=== PATIENT | male | born 1955 | race Two or more races ===

== ENCOUNTER 2017-07-31 18:03 | Inpatient (IN) | payer SELFPAY ==
[~2017-07-31] VITALS: Ht 182.9 cm; Wt 105.3 kg
[~2017-07-31 18:03] MED LIST: ASPI81CH43 PO; CHOL20007 PO; ESOM1CAP4 PO; HYDR12.527 PO; KRIL1CAP10 PO; ROSU1TAB6 PO; TICA90TA PO
[2017-07-31 19:43] LABS: Basophils # (auto) 0.1 uL; Basophils % (auto) 0.6 % (0.0-2.0); Eosinophils # (auto) 0.1 uL; Eosinophils % (auto) 1.1 % (0.0-7.0); Hemoglobin 10.3 g/dL (13.5-17.5); Lymphocytes # (auto) 1.1 uL; Lymphocytes % (auto) 10.8 % (10.0-50.0); Mean Corpuscular Hemoglobin 30.2 pg (28.0-32.0); Mean Corpuscular Hgb Conc. 33.2 g/dL (32.0-36.0); Mean Corpuscular Volume 91.1 fL (80.0-100.0); Mean Platelet Volume 11.1 fL (6.9-10.8); Monocytes # (auto) 0.8 uL; Monocytes % (auto) 7.7 % (0.0-12.0); Neutrophils % (auto) 79.8 % (37.0-80.0); Platelet Count (auto) 250 10^3/uL (140-450); White Blood Cell 10.1 10^3/uL (4.4-10.8)
[2017-07-31 19:54] LABS: Partial Thromboplastin Time 23.8 sec (22.64-33.71); Prothrombin Time 10.9 sec (9.37-12.3)
[2017-07-31 20:00] LABS: Temperature: 20.9 C (20.0-25.0)
[2017-07-31] MEDS ORDERED: FUROSEMIDE 20 MG/2 ML VIAL IV ONE ×2 (20:00→20:30)
[2017-07-31 20:04] LABS: Albumin 2.8 g/dL (3.4-5.0); Bilirubin, Total 0.3 mg/dL (0.2-1.0); Calcium 8.3 mg/dL (8.5-10.1); Magnesium 2.4 mg/dL (1.6-2.6); Total Protein 6.9 g/dL (6.4-8.2)
[2017-07-31 20:11] LABS: Potassium 5.9 mmol/L (3.5-5.1)
[2017-07-31] MEDS ORDERED: SODIUM POLYSTYRENE SULF 15GM/60ML SUSP PO ONE (20:30)
[2017-07-31] MEDS ORDERED: InsuLIN REG 1unit/0.01ml Soln (100units/ml) IV ONE (20:30)
[2017-07-31] MEDS ORDERED: IPRATROPIUM BROM 0.5 MG/2.5ML INH SOL NEB ONE (21:45)
[2017-07-31] MEDS ORDERED: ALBUTEROL SULF 2.5 MG/0.5ML(0.5%) NEB SOLN NEB ONE (21:45)
[2017-07-31] MEDS ORDERED: SODIUM BICARBONATE 8.4 % INJ 50ML VIAL IV ONE (21:45)
[2017-07-31] MEDS ORDERED: CALCIUM CHLOR(10%) 100MG/ML 10ML SYRINGE IV ONE ×2 (21:49→21:52)
[2017-07-31] MEDS ORDERED: CALCIUM CHL 100MG/ML 1,000 MG in D5W 5% 100 ML IV ONE (22:00)
[2017-07-31 22:04] LABS: Allen Test Yes; Base Excess -5.3 mmol/L (-2.0-2.0); Blood COHb 0.3 % (0.5-1.5); Blood MetHb 0.2 % (0.0-1.5); HCO3 19.1 mmol/L (22-26.0); MODE NASAL CANNULA; O2Hb 93.5 % (94.0-97.0); PCO2 33.1 mmHg (35.0-45.0); PCO2(T) 33.1 mmHg (35.0-45.0); PO2 81.1 mmHg (80.0-100.0); PO2(T) 81.1 mmHg (80.0-100.0); Sample Type Arterial; pH 7.378 (7.350-7.450)
[2017-07-31] MEDS ORDERED: NITROGLYCERIN 0.4 MG SL TAB SL PRN (23:00)
[2017-07-31] MEDS ORDERED: MORPHINE SULF INJ 2 MG/ML SYRINGE 1ML IV PRN (23:00)
[2017-07-31] MEDS ORDERED: ONDANSETRON HCL 4 MG/2 ML VIAL ONE (23:25)
[2017-07-31] MEDS ORDERED: ONDANSETRON HCL 4 MG/2 ML VIAL IV ONE (23:45)
[2017-08-01] VITALS (7 sets, daily range): BP systolic 123–189; BP diastolic 52–92
[2017-08-01] MEDS ORDERED: DEXTROSE (50%) 50ML SYRG IV PRN
[2017-08-01 03:31] LABS: Urine Bilirubin Negative (Negative); Urine Blood 1+ /uL (Negative); Urine Color Yellow (Yellow); Urine Glucose 3+ mg/dL (Normal); Urine Hyaline Cast MANY /lpf (0 - 2); Urine Ketone Negative (Negative); Urine Nitrite Negative (Negative); Urine RBC 2 /hpf (0 - 3); Urine Squamous Epithelial Cell FEW /hpf (<5); Urine Urobilinogen Normal (Negative)
[2017-08-01 04:41] LABS: Basophils # (auto) 0.1 uL; Basophils % (auto) 0.5 % (0.0-2.0); Eosinophils # (auto) 0.1 uL; Eosinophils % (auto) 0.5 % (0.0-7.0); Hematocrit 32.3 % (41.0-53.0); Hemoglobin 10.5 g/dL (13.5-17.5); Lymphocytes % (auto) 15.9 % (10.0-50.0); Mean Corpuscular Hemoglobin 29.6 pg (28.0-32.0); Mean Corpuscular Hgb Conc. 32.4 g/dL (32.0-36.0); Mean Corpuscular Volume 91.4 fL (80.0-100.0); Mean Platelet Volume 10.8 fL (6.9-10.8); Monocytes # (auto) 0.9 uL; Monocytes % (auto) 7.3 % (0.0-12.0); Neutrophils # (auto) 9.4 uL; Neutrophils % (auto) 75.8 % (37.0-80.0); Nucleated Red Blood Cells % 0.1 %; Platelet Count (auto) 282 10^3/uL (140-450); Red Cell Distribution Width 13.2 % (11.8-14.3); White Blood Cell 12.4 10^3/uL (4.4-10.8)
[2017-08-01 05:03] LABS: Albumin 3.1 g/dL (3.4-5.0); Calcium 9.3 mg/dL (8.5-10.1); Potassium 4.7 mmol/L (3.5-5.1)
[2017-08-01 05:06] LABS: BUN/Creatinine Ratio 12.9
[2017-08-01 05:08] LABS: Bilirubin, Total 0.4 mg/dL (0.2-1.0); Total Protein 7.3 g/dL (6.4-8.2)
[2017-08-01] MEDS: ACCU-CHEK COMFORT CURVE STRIP VI SCH ×4 (07:49→21:45)
[2017-08-01] MEDS: InsuLIN REG 1unit/0.01ml Soln (100units/ml) SC SCH ×4 (07:55→21:46)
[2017-08-01] MEDS ORDERED: FUROSEMIDE INJECTION 100 MG in D5W 5% 90 ML IV SCH (13:30)
[2017-08-01] MEDS: ASPirin 81 mg TAB PO SCH (14:12)
[2017-08-01] MEDS: FUROSEMIDE INJECTION 250 MG in D5W 5% 225 ML IV SCH (14:12)
[2017-08-01] MEDS: DOPamine 1600MCG/ML 250 ML IV SCH (14:18)
[2017-08-01] MEDS ORDERED: ONDANSETRON HCL 4 MG/2 ML VIAL IV PRN (14:45)
[2017-08-01] MEDS: hydrALAZINE HCL 20 MG/ML VL IV PRN (15:36)
[2017-08-01] MEDS ORDERED: hydrALAZINE HCL 20 MG/ML VL IV PRN (17:30)
[2017-08-01] MEDS ORDERED: METF-370 PO (18:26)
[2017-08-01] MEDS: ATORVASTATIN 20 MG TAB PO SCH (21:45)
[2017-08-01] MEDS ORDERED: ACETAMINOPHEN 500 MG TAB PO ONE (22:11)
[2017-08-01] MEDS ORDERED: ACETAMINOPHEN 500 MG TAB PO PRN (22:15)
[2017-08-02] VITALS: BP 118/43
[2017-08-02] MEDS: VANCOMYCIN 1GM/250ML D5W 250 ML IV SCH ×2 (03:00→15:00)
[2017-08-02] MEDS: DOPamine 1600MCG/ML 250 ML IV SCH (03:16)
[2017-08-02 04:00] VITALS: BP 137/68
[2017-08-02 05:08] LABS: Basophils # (auto) 0.1 uL; Basophils % (auto) 0.4 % (0.0-2.0); Eosinophils # (auto) 0 uL; Eosinophils % (auto) 0.3 % (0.0-7.0); Hemoglobin 10.3 g/dL (13.5-17.5); Lymphocytes # (auto) 1.3 uL; Lymphocytes % (auto) 9.4 % (10.0-50.0); Mean Corpuscular Hemoglobin 29.9 pg (28.0-32.0); Mean Corpuscular Hgb Conc. 33.4 g/dL (32.0-36.0); Mean Corpuscular Volume 89.8 fL (80.0-100.0); Mean Platelet Volume 10.9 fL (6.9-10.8); Monocytes # (auto) 1.5 uL; Monocytes % (auto) 10.8 % (0.0-12.0); Neutrophils % (auto) 79.1 % (37.0-80.0); Platelet Count (auto) 266 10^3/uL (140-450); Red Cell Distribution Width 13.1 % (11.8-14.3); White Blood Cell 13.9 10^3/uL (4.4-10.8)
[2017-08-02 05:22] LABS: INR 1.01 (0.9-1.15)
[2017-08-02] MEDS: ACCU-CHEK COMFORT CURVE STRIP VI SCH ×4 (06:45→22:05)
[2017-08-02] MEDS: InsuLIN REG 1unit/0.01ml Soln (100units/ml) SC SCH ×4 (06:45→22:05)
[2017-08-02 08:00] VITALS: BP 159/72
[2017-08-02 08:14] LABS: Albumin 2.9 g/dL (3.4-5.0); BUN/Creatinine Ratio 13.3; Bilirubin, Total 0.6 mg/dL (0.2-1.0); Calcium 8.8 mg/dL (8.5-10.1); Magnesium 2.5 mg/dL (1.6-2.6); Phosphorus 6.7 mg/dL (2.5-4.90); Potassium 4.1 mmol/L (3.5-5.1)
[2017-08-02 09:02] LABS: Hepatitis B Surface Antibody Negative
[2017-08-02] MEDS: ASPirin 81 mg TAB PO SCH (09:06)
[2017-08-02 11:57] VITALS: BP 154/76
[2017-08-02] MEDS ORDERED: LIDOCAINE 2%HCL (LOCAL ANESTH.) INJ 20ML MDV ONE (13:20)
[2017-08-02] MEDS ORDERED: VANCOMYCIN HCL 1000 MG VL ONE ×2 (13:28→15:59)
[2017-08-02] MEDS ORDERED: VANCOMYCIN 1GM/250ML D5W 250 ML IV ONE ×3 (13:28→17:30)
[2017-08-02] MEDS ORDERED: VANCOMYCIN HCL 1000 MG VL IR ONE (13:30)
[2017-08-02] MEDS ORDERED: FUROSEMIDE INJECTION 100 MG in D5W 5% 90 ML IV SCH (13:30)
[2017-08-02] MEDS: FUROSEMIDE INJECTION 250 MG in D5W 5% 225 ML IV SCH (14:00)
[2017-08-02] MEDS ORDERED: ceFAZolin 1GM/50ML D5W 50 ML IV ONE (15:24)
[2017-08-02] MEDS ORDERED: MIDAZOLAM HCL 1MG/1ML-2 ML VIAL ONE (15:38)
[2017-08-02] MEDS ORDERED: fentaNYL CITRATE 100 MCG/2 ML VL ONE (15:39)
[2017-08-02] MEDS ORDERED: GELATIN 1 SPONGE SIZE 100 TOP ONE (16:33)
[2017-08-02] MEDS ORDERED: HYDROcodone-ACET 5/325MG TAB PO PRN ×2 (17:00→17:15)
[2017-08-02] MEDS ORDERED: LORazepam 0.5 MG TAB PO PRN (17:00)
[2017-08-02] MEDS: hydrALAZINE HCL 20 MG/ML VL IV PRN (17:47)
[2017-08-02 19:55] VITALS: BP 160/82
[2017-08-02] MEDS: ATORVASTATIN 20 MG TAB PO SCH (22:05)
[2017-08-03 00:01] VITALS: BP 144/73
[2017-08-03 04:10] VITALS: BP 177/82
[2017-08-03] MEDS ORDERED: VANCOMYCIN PER PHARMACY 0 MG IV SCH (05:30)
[2017-08-03 05:33] LABS: Basophils # (auto) 0.1 uL; Basophils % (auto) 0.6 % (0.0-2.0); Eosinophils # (auto) 0.3 uL; Hematocrit 26.9 % (41.0-53.0); Hemoglobin 9.1 g/dL (13.5-17.5); Lymphocytes # (auto) 1.6 uL; Lymphocytes % (auto) 14.7 % (10.0-50.0); Mean Corpuscular Hemoglobin 30.4 pg (28.0-32.0); Mean Corpuscular Hgb Conc. 33.9 g/dL (32.0-36.0); Mean Corpuscular Volume 89.9 fL (80.0-100.0); Mean Platelet Volume 10.9 fL (6.9-10.8); Monocytes # (auto) 1.3 uL; Monocytes % (auto) 12.5 % (0.0-12.0); Neutrophils # (auto) 7.4 uL; Neutrophils % (auto) 69.2 % (37.0-80.0); Platelet Count (auto) 229 10^3/uL (140-450); Red Cell Distribution Width 12.7 % (11.8-14.3); White Blood Cell 10.7 10^3/uL (4.4-10.8)
[2017-08-03 05:45] LABS: Calcium 8.5 mg/dL (8.5-10.1); Potassium 3.7 mmol/L (3.5-5.1)
[2017-08-03 05:47] LABS: BUN/Creatinine Ratio 14.5
[2017-08-03] MEDS: InsuLIN REG 1unit/0.01ml Soln (100units/ml) SC SCH ×4 (06:42→22:45)
[2017-08-03] MEDS: ACCU-CHEK COMFORT CURVE STRIP VI SCH ×4 (06:48→22:00)
[2017-08-03 08:00] VITALS: BP 170/71
[2017-08-03] MEDS ORDERED: VANCOMYCIN 1GM/250ML D5W 250 ML IV ONE (10:00)
[2017-08-03] MEDS ORDERED: amLODIPine BESYLATE 5 MG TAB PO ONE (10:15)
[2017-08-03] MEDS ORDERED: CHOL1000T PO (10:22)
[2017-08-03] MEDS ORDERED: ASPI81CH43 PO (10:22)
[2017-08-03] MEDS ORDERED: ATOR20TA50 PO (10:22)
[2017-08-03] MEDS: CHOLECALCIFEROL (VITD3) 1,000 UNIT TAB PO SCH (10:25)
[2017-08-03] MEDS: ASPirin 81 mg TAB PO SCH (10:26)
[2017-08-03 12:00] VITALS: BP 170/72
[2017-08-03] MEDS: glipiZIDE 5 MG TAB PO SCH (12:00)
[2017-08-03] MEDS: hydrALAZINE HCL 20 MG/ML VL IV PRN (13:45)
[2017-08-03 16:00] VITALS: BP 126/76
[2017-08-03 20:21] VITALS: BP 141/65
[2017-08-03] MEDS: ATORVASTATIN 20 MG TAB PO SCH (22:44)
[2017-08-04] VITALS: BP 191/89
[2017-08-04] MEDS: hydrALAZINE HCL 20 MG/ML VL IV PRN ×3 (00:22→16:13)
[2017-08-04 03:54] VITALS: BP 186/86
[2017-08-04] MEDS ORDERED: cloNIDine HCL 0.1 MG TAB ONE (04:53)
[2017-08-04] MEDS ORDERED: cloNIDine HCL 0.1 MG TAB PO ONE (05:00)
[2017-08-04 05:35] LABS: BUN/Creatinine Ratio 16.9; Calcium 8.4 mg/dL (8.5-10.1); Potassium 3.5 mmol/L (3.5-5.1)
[2017-08-04] MEDS: ACCU-CHEK COMFORT CURVE STRIP VI SCH ×4 (06:57→22:28)
[2017-08-04] MEDS: InsuLIN REG 1unit/0.01ml Soln (100units/ml) SC SCH ×4 (06:58→22:27)
[2017-08-04] MEDS: ACETAMINOPHEN 325 MG TAB PO PRN (07:05)
[2017-08-04] MEDS: glipiZIDE 5 MG TAB PO SCH (07:10)
[2017-08-04 08:00] VITALS: BP 138/32
[2017-08-04] MEDS: ASPirin 81 mg TAB PO SCH (09:47)
[2017-08-04] MEDS: CHOLECALCIFEROL (VITD3) 1,000 UNIT TAB PO SCH (09:47)
[2017-08-04] MEDS ORDERED: amLODIPine BESYLATE 5 MG TAB PO SCH (10:00)
[2017-08-04] MEDS ORDERED: FUROSEMIDE 40 MG/4 ML VIAL IV ONE (10:45)
[2017-08-04 12:00] VITALS: BP 164/59
[2017-08-04 22:00] VITALS: BP 161/75
[2017-08-04] MEDS ORDERED: hydrALAZINE HCL 25 MG TAB PO SCH (22:00)
[2017-08-04] MEDS ORDERED: glipiZIDE 5 MG TAB PO SCH (22:00)
[2017-08-04] MEDS: ATORVASTATIN 20 MG TAB PO SCH (22:24)
[2017-08-05] MEDS: ACETAMINOPHEN 325 MG TAB PO PRN ×3 (03:03→14:37)
[2017-08-05 05:00] VITALS: BP 166/76
[2017-08-05 06:16] LABS: Basophils # (auto) 0.1 uL; Eosinophils # (auto) 0.3 uL; Eosinophils % (auto) 3.4 % (0.0-7.0); Hematocrit 28.7 % (41.0-53.0); Hemoglobin 9.8 g/dL (13.5-17.5); Lymphocytes # (auto) 1.4 uL; Lymphocytes % (auto) 15.1 % (10.0-50.0); Mean Corpuscular Hemoglobin 30.5 pg (28.0-32.0); Mean Corpuscular Hgb Conc. 34.1 g/dL (32.0-36.0); Mean Corpuscular Volume 89.4 fL (80.0-100.0); Mean Platelet Volume 10.3 fL (6.9-10.8); Monocytes % (auto) 10.4 % (0.0-12.0); Neutrophils # (auto) 6.5 uL; Neutrophils % (auto) 70.1 % (37.0-80.0); Platelet Count (auto) 266 10^3/uL (140-450); Red Cell Distribution Width 12.6 % (11.8-14.3); White Blood Cell 9.3 10^3/uL (4.4-10.8)
[2017-08-05 06:31] LABS: BUN/Creatinine Ratio 17.3; Calcium 8.1 mg/dL (8.5-10.1); Potassium 3.6 mmol/L (3.5-5.1)
[2017-08-05] MEDS: InsuLIN REG 1unit/0.01ml Soln (100units/ml) SC SCH ×4 (06:50→21:57)
[2017-08-05] MEDS: hydrALAZINE HCL 20 MG/ML VL IV PRN (06:51)
[2017-08-05] MEDS: ACCU-CHEK COMFORT CURVE STRIP VI SCH ×4 (06:51→21:51)
[2017-08-05 09:00] VITALS: BP 166/84
[2017-08-05] MEDS ORDERED: LACTULOSE 20Gm/30ML SOLN PO PRN (09:15)
[2017-08-05] MEDS ORDERED: FUROSEMIDE 40 MG/4 ML VIAL IV ONE (09:15)
[2017-08-05] MEDS: ISOSORBIDE MONONITRATE 60 MG TAB PO SCH (09:33)
[2017-08-05] MEDS: glipiZIDE 5 MG TAB PO SCH ×2 (09:34→21:51)
[2017-08-05] MEDS: hydrALAZINE HCL 25 MG TAB PO SCH ×2 (09:34→21:50)
[2017-08-05] MEDS: CHOLECALCIFEROL (VITD3) 1,000 UNIT TAB PO SCH (09:34)
[2017-08-05] MEDS: ASPirin 81 mg TAB PO SCH (09:35)
[2017-08-05 13:00] VITALS: BP 149/67
[2017-08-05 18:21] VITALS: BP 147/70
[2017-08-05] MEDS: ATORVASTATIN 20 MG TAB PO SCH (21:51)
[2017-08-05 22:00] VITALS: BP 153/80
[2017-08-06 05:00] VITALS: BP 155/88
[2017-08-06] MEDS: ACCU-CHEK COMFORT CURVE STRIP VI SCH ×2 (06:23→11:30)
[2017-08-06 06:26] LABS: BUN/Creatinine Ratio 17.1; Calcium 8.3 mg/dL (8.5-10.1); Potassium 3.6 mmol/L (3.5-5.1)
[2017-08-06] MEDS: InsuLIN REG 1unit/0.01ml Soln (100units/ml) SC SCH ×2 (06:26→12:31)
[2017-08-06 08:00] VITALS: BP_SYST 147; BP_SYST 177; BP_DIAS 79; BP_DIAS 83
[2017-08-06] MEDS: hydrALAZINE HCL 20 MG/ML VL IV PRN (08:25)
[2017-08-06 09:15] VITALS: BP 138/61
[2017-08-06 09:16] VITALS: BP 143/70
[2017-08-06] MEDS: glipiZIDE 5 MG TAB PO SCH (09:58)
[2017-08-06] MEDS: ASPirin 81 mg TAB PO SCH (09:58)
[2017-08-06] MEDS: CHOLECALCIFEROL (VITD3) 1,000 UNIT TAB PO SCH (09:58)
[2017-08-06] MEDS: hydrALAZINE HCL 25 MG TAB PO SCH (09:58)
[2017-08-06] MEDS: ISOSORBIDE MONONITRATE 60 MG TAB PO SCH (09:59)
[2017-08-06 13:00] VITALS: BP 147/79
[2017-08-06] MEDS ORDERED: GLIP-115 PO (13:46)
[2017-08-06] MEDS ORDERED: ISO60SRT PO (13:46)
[2017-08-06] MEDS ORDERED: HYDR-2651 PO (13:46)
[2017-08-06 14:17] VITALS: BP 147/79
[2017-08-06] MEDS ORDERED: FURO40TA PO (16:03)
== END 2017-08-06 15:00 | disposition home or self-care (01) | DRG 242 ==
LOC: EDBD 18:03 → ER 18:03 → TELE 18:04 → DOU IN ICU 08-01 18:05 → TELE-WESTW 08-04 15:30
PROVIDERS: ADMIT Nurse Practitioner Family; ATTEND Internal Medicine
PROC: 0JH606Z Insertion of Pacemaker, Dual Chamber into Chest Subcutaneous Tissue and Fascia, Open Approach (ICD-10-PCS; principal; 2017-08-02)
PROC: 02H63JZ Insertion of Pacemaker Lead into Right Atrium, Percutaneous Approach (ICD-10-PCS; 2017-08-02)
PROC: 02HK3JZ Insertion of Pacemaker Lead into Right Ventricle, Percutaneous Approach (ICD-10-PCS; 2017-08-02)
DX: I44.1 Atrioventricular block, second degree (principal); I50.41 Acute combined systolic (congestive) and diastolic (congestive) heart failure; N17.0 Acute kidney failure with tubular necrosis; N18.4 Chronic kidney disease, stage 4 (severe); I13.0 Hypertensive heart and chronic kidney disease with heart failure and stage 1 through stage 4 chronic kidney disease, or unspecified chronic kidney disease; I49.5 Sick sinus syndrome; E11.21 Type 2 diabetes mellitus with diabetic nephropathy; E11.22 Type 2 diabetes mellitus with diabetic chronic kidney disease; D63.8 Anemia in other chronic diseases classified elsewhere; E55.9 Vitamin D deficiency, unspecified; E11.65 Type 2 diabetes mellitus with hyperglycemia; E78.5 Hyperlipidemia, unspecified; E87.5 Hyperkalemia; E66.9 Obesity, unspecified; Z68.33 Body mass index [BMI] 33.0-33.9, adult; Z83.3 Family history of diabetes mellitus; Z79.82 Long term (current) use of aspirin; Z79.899 Other long term (current) drug therapy; Z79.84 Long term (current) use of oral hypoglycemic drugs; Z68.31 Body mass index [BMI] 31.0-31.9, adult
CPT/HCPCS: 33208; 36415; 36600; 51702; 71010; 71020; 76775; 80048; 80053; 80202; 81001; 82306; 82570; 82805; 82962; 83036; 83735; 83880; 83970; 84100; 84132; 84156; 84443; 84484; 84550; 85025; 85379; 85610; 85730; 86706; 86803; 87081; 87340; 93005; 93306; 93971; 94640; 94761; 96365; 96375; 99152; 99153; C1785; J0690; J1815; J2250; J2405; J7060